=== PATIENT | female | born 1935 | race African-American/Black ===

== ENCOUNTER 2019-03-21 13:30 | Emergency (ER) | payer OTHER ==
[~2019-03-21] VITALS: Ht 162.6 cm; Wt 75.3 kg
[~2019-03-21 13:30] MED LIST: AMLO5TAB10 PO; CYAN-25 PO; DOCU-109 PO; DONE5TAB56 PO; ERGO500027 PO; HYDR-2761 PO; LIDO700A4 TD; LORA0.5T96 PO; LOSA-73 PO; METH29OI TP
[2019-03-21 15:17] LABS: INFLUENZA A PATIENT NEGATIVE (NEGATIVE); INFLUENZA B PATIENT NEGATIVE (NEGATIVE)
--- NOTE | 2019-03-21 15:24 | PHYS DOC ---
Past Medical History Past Medical History: Constipation, Hypertension, Unknown, Other Additional Past Medical Histor: ALZHEIMER'S,CKD,CHRONIC PAIN Past Surgical History: No Surgical History Additional Past Surgical Histo: UNKNOWN Alcohol Use: None Drug Use: None Adult General Chief Complaint Chief Complaint: SORE THROAT HPI HPI Patient is a 83 year old male patient resident of group home with history of dementia who presents via EMS with complaining of sore throat. [facility] staff reported that patient had complaining of sore throat and they decided to Center to ER for evaluation. Patient is not able to give history. Review of Systems Review of Systems Unable to obtain because of dementia Allergies Allergies Allergies Coded Allergies Type Severity Reaction Last Updated Verified No Known Drug Allergies 04/05/15 No Physical Exam Physical Exam Constitutional: Well nourished, no acute distress, non-toxic appearance. [] HENT: Normocephalic, atraumatic, bilateral external ears normal, oropharynx moist, no oral exudates, nose normal. [] Eyes: PERRLA, EOMI, conjunctiva normal, no discharge. [] Neck: Normal range of motion, no tenderness, supple, no stridor. [] Cardiovascular:Heart rate regular rhythm, no murmur [] Lungs & Thorax: Bilateral breath sounds clear to auscultation [] Skin: Warm, dry, no erythema, no rash. [] Back: No tenderness, no CVA tenderness. [] Extremities: No tenderness, no cyanosis, no clubbing, ROM intact, no edema. [] Neurologic: Alert and oriented X 1, normal motor function, normal sensory function, no focal deficits noted. [] Psychologic: Affect normal Current Patient Data Vital Signs Vital Signs Date Time Temp Pulse Resp B/P (MAP) Pulse Ox O2 Delivery O2 Flow Rate FiO2 03/21/19 15:58 82 15 129/84 (99) 96 Room Air 03/21/19 13:32 98.4 98.4 Lab Values Laboratory Tests Test 03/21/19 14:00 03/21/19 14:19 Influenza Type A Antigen Negative (NEGATIVE) Influenza Type B Antigen Negative (NEGATIVE) Group A Streptococcus Rapid Negative (NEGATIVE) EKG EKG [] Radiology/Procedures Radiology/Procedures [] Course & Med Decision Making Course & Med Decision Making Pertinent Labs reviewed. (See chart for details) Evaluation of patient in ER showed 83-year-old female patient resident of group home with history of dementia sent from group home for evaluation of sore throat. Patient had unremarkable physical exam except for dementia. Prescription was flu was negative. Patient was discharged to group home with diagnose of viral pharyngitis. Dragon Disclaimer Dragon Disclaimer This electronic medical record was generated, in whole or in part, using a voice recognition dictation system. Departure Departure Impression: Primary Impression: Viral pharyngitis Additional Impression: Dementia Disposition: 01 HOME, SELF-CARE (group home at 1524) Condition: STABLE Referrals: UNKNOWN PCP NAME (PCP) Patient Instructions: Viral Pharyngitis Additional Instructions: Drink plenty of liquids Follow-up with your primary care physician in 2-3 days Return to ER if not getting better Problem Qualifiers Additional Impression: Dementia Dementia type: unspecified type Dementia behavioral disturbance: without behavioral disturbance Qualified Codes: F03.90 - Unspecified dementia without behavioral disturbance MAT LUQUE MD Mar 21, 2019 15:24
[2019-03-21 15:58] VITALS: BP 129/84
== END 2019-03-21 16:30 | disposition home or self-care (01) ==
LOC: ER 13:30
DX: J02.8 Acute pharyngitis due to other specified organisms (principal); B97.89 Other viral agents as the cause of diseases classified elsewhere; I10 Essential (primary) hypertension; G89.29 Other chronic pain; G30.9 Alzheimer's disease, unspecified; F02.80 Dementia in other diseases classified elsewhere, unspecified severity, without behavioral disturbance, psychotic disturbance, mood disturbance, and anxiety; I12.9 Hypertensive chronic kidney disease with stage 1 through stage 4 chronic kidney disease, or unspecified chronic kidney disease; N18.9 Chronic kidney disease, unspecified
CPT/HCPCS: 87070; 87804; 87880; 99284